=== PATIENT | female | born 1995 | race African-American/Black ===

== ENCOUNTER 2021-05-15 18:36 | Emergency (ER) | payer SELFPAY ==
[~2021-05-15] VITALS: Ht 154.9 cm; Wt 45.5 kg
[2021-05-15 18:37] VITALS: BP 144/82
[2021-05-15] MEDS ORDERED: ABIL300I IM (19:12)
[2021-05-15] MEDS ORDERED: VALA1TAB5 PO (19:12)
== END 2021-05-15 20:21 | disposition left against medical advice (07) ==
LOC: M ED 18:36
DX: Z53.29 Procedure and treatment not carried out because of patient's decision for other reasons (principal)

== ENCOUNTER 2021-08-12 10:06 | Emergency (ER) | payer OTHER, SELFPAY ==
[~2021-08-12] VITALS: Ht 154.9 cm; Wt 51.8 kg
[~2021-08-12 10:06] MED LIST: ABIL300I IM; VALA1TAB5 PO
[2021-08-12] MEDS ORDERED: ONDA-83 PO (10:11)
[2021-08-12 11:45] LABS: BASO % 0.3 % (0.0-1.0); EOS # 0.1 10^3/uL (0.0-0.5); EOS % 0.7 % (0.0-3.0); HEMATOCRIT 37.1 % (36.0-47.0); LYMPH % 28.7 % (24.0-44.0); MEAN CORPUSCULAR HEMOGLOBIN 26.8 pg (27.0-33.0); MEAN CORPUSCULAR HGB CONC 32.3 g/dl (32.0-36.5); MONO # 0.5 10^3/uL (0.0-0.8); MONO % 7.7 % (2.0-8.0); NEUTROPHILS # 4.3 10^3/uL (1.5-8.5); NEUTROPHILS % 62.2 % (36.0-66.0); PLATELET COUNT, AUTOMATED 281 10^3/uL (150-450); RED BLOOD COUNT 4.47 10^6/uL (4.00-5.40); WHITE BLOOD COUNT 6.8 10^3/uL (4.0-10.0)
[2021-08-12 13:09] VITALS: BP 110/63
[2021-08-12] MEDS ORDERED: METR-265 PO ×2 (13:15→13:20)
== END 2021-08-12 13:26 | disposition home or self-care (01) ==
LOC: M ED 10:06
DX: O20.9 Hemorrhage in early pregnancy, unspecified (principal); Z3A.01 Less than 8 weeks gestation of pregnancy; O23.591 Infection of other part of genital tract in pregnancy, first trimester

== ENCOUNTER 2021-10-01 13:31 | Emergency (ER) | payer OTHER ==
[~2021-10-01] VITALS: Ht 154.9 cm; Wt 54.8 kg
[~2021-10-01 13:31] MED LIST changes: +METR-265 PO; +ONDA-83 PO
[2021-10-01 13:32] VITALS: BP 138/77
== END 2021-10-01 17:08 | disposition left against medical advice (07) ==
LOC: M ED 13:31
DX: O21.9 Vomiting of pregnancy, unspecified (principal); Z3A.15 15 weeks gestation of pregnancy

== ENCOUNTER 2021-12-06 09:35 | Outpatient (CLI) | payer OTHER ==
[~2021-12-06] VITALS: Ht 157.5 cm; Wt 59.8 kg
[2021-12-06 09:59] VITALS: BP 131/59
[2021-12-06] MEDS ORDERED: HOME MED LIST COMPLETE! XX SCH (10:30)
[2021-12-06] MEDS ORDERED: ACET325C5 PO (10:30)
[2021-12-06] MEDS ORDERED: PRENTAB9 PO (10:30)
[2021-12-06] MEDS ORDERED: FERR325T3 PO (10:30)
[2021-12-06] MEDS ORDERED: ONDA-83 PO (10:30)
[2021-12-06] MEDS ORDERED: ASCO50TA PO (10:30)
[2021-12-06] MEDS ORDERED: ONDANSETRON 4MG TAB PO ONE (10:50)
[2021-12-06 11:20] LABS: APPEARANCE, URINE HAZY (CLEAR); BACTERIA, URINE AUTO NEGATIVE (NEGATIVE); BILIRUBIN, URINE AUTO NEGATIVE (NEGATIVE); BLOOD, URINE BLOOD NEGATIVE (NEGATIVE); COLOR, URINE YELLOW (YELLOW); GLUCOSE, URINE (UA) AUTO NEGATIVE (NEGATIVE); KETONE, URINE AUTO NEGATIVE (NEGATIVE); LEUKOCYTE ESTERASE, URINE AUTO 1+ (NEGATIVE); NITRITE, URINE AUTO NEGATIVE (NEGATIVE); PROTEIN, URINE AUTO NEGATIVE (NEGATIVE); RBC, URINE AUTO 1 /HPF (0-3); SPECIFIC GRAVITY URINE AUTO 1.004 (1.002-1.035); SQUAMOUS EPITHELIAL CELL UR AU 14 /HPF (0-6); UROBILINOGEN, URINE AUTO 0.2 mg/dL (0.0-2.0); WBC, URINE AUTO 2 /HPF (0-3)
[2021-12-06] MEDS ORDERED: ONDANSETRON 4MG/2ML VIAL IV ONE (11:35)
[2021-12-06] MEDS ORDERED: LR 1,000 ML IV ONE (11:35)
[2021-12-06] MEDS ORDERED: OMEP10CASR PO (11:53)
[2021-12-06] MEDS: OMEPRAZOLE 20MG CAP PO ONE ×2 (12:08→13:46)
[2021-12-06 14:10] VITALS: BP 130/70
== END 2021-12-06 14:50 | disposition home or self-care (01) ==
LOC: M LDO 09:35
PROVIDERS: ATTEND Obstetrics & Gynecology
DX: O26.892 Other specified pregnancy related conditions, second trimester (principal); R10.2 Pelvic and perineal pain; Z3A.24 24 weeks gestation of pregnancy; K21.9 Gastro-esophageal reflux disease without esophagitis; F43.10 Post-traumatic stress disorder, unspecified; F32.A Depression, unspecified; F41.9 Anxiety disorder, unspecified; F20.9 Schizophrenia, unspecified; O99.342 Other mental disorders complicating pregnancy, second trimester; O99.612 Diseases of the digestive system complicating pregnancy, second trimester
CPT/HCPCS: 81001; 96360; 96361; G0378; G0463; J2405

== ENCOUNTER 2021-12-08 08:25 | Outpatient (CLI) | payer OTHER ==
[~2021-12-08 08:25] MED LIST changes: +ACET325C5 PO; +ASCO50TA PO; +FERR325T3 PO; +OMEP10CASR PO; +PRENTAB9 PO
[2021-12-08] MEDS ORDERED: OMEPRAZOLE 20MG CAP PO ONE (09:00)
[2021-12-08] MEDS ORDERED: LR 1,000 ML IV SCH ×2 (09:00→10:00)
[2021-12-08] MEDS ORDERED: ONDANSETRON 4MG/2ML VIAL IV ONE (09:20)
== END 2021-12-08 11:05 | disposition left against medical advice (07) ==
LOC: M LDO 08:25
PROVIDERS: ATTEND Obstetrics & Gynecology
DX: O21.2 Late vomiting of pregnancy (principal); Z3A.24 24 weeks gestation of pregnancy; O99.342 Other mental disorders complicating pregnancy, second trimester; F43.20 Adjustment disorder, unspecified; F32.A Depression, unspecified; F41.9 Anxiety disorder, unspecified; F20.9 Schizophrenia, unspecified; Z91.19 Patient's noncompliance with other medical treatment and regimen
CPT/HCPCS: G0378; G0463

== ENCOUNTER 2021-12-14 03:34 | Outpatient (CLI) | payer OTHER ==
[~2021-12-14] VITALS: Ht 157.5 cm; Wt 54.4 kg
[2021-12-14 03:43] VITALS: BP 139/80
[2021-12-14] MEDS ORDERED: HOME MED LIST COMPLETE! XX SCH (04:15)
[2021-12-14] MEDS ORDERED: ARIPiprazole 15 MG TAB (AbiLIFY) PO ONE (05:45)
[2021-12-14 06:10] VITALS: BP 98/52
[2021-12-14 07:29] VITALS: BP 121/56
[2021-12-14] MEDS ORDERED: ARIPiprazole MONOHYDRATE 400 MG INJ (ABILIFY)(FREE PSY INPT ONLY) IM ONE (08:00)
[2021-12-14] MEDS ORDERED: ONDANSETRON 4MG ORAL DISINTEGRATING TAB PO PRN (08:25)
== END 2021-12-14 08:34 | disposition home or self-care (01) ==
LOC: M LDO 03:34
PROVIDERS: ATTEND Obstetrics & Gynecology
DX: O99.342 Other mental disorders complicating pregnancy, second trimester (principal); F20.9 Schizophrenia, unspecified; F31.9 Bipolar disorder, unspecified; Z3A.25 25 weeks gestation of pregnancy
CPT/HCPCS: 59025; 96372; G0378; G0463

== ENCOUNTER 2022-01-10 11:54 | Outpatient (CLI) | payer OTHER ==
[~2022-01-10] VITALS: Ht 157.5 cm; Wt 59.1 kg
[2022-01-10 12:05] VITALS: BP 110/62
[2022-01-10] MEDS ORDERED: TRAN1DIS4 TOP (12:13)
[2022-01-10] MEDS ORDERED: HOME MED LIST COMPLETE! XX SCH (12:15)
[2022-01-10] MEDS ORDERED: PRIL20TA2 PO (13:26)
[2022-01-10] MEDS ORDERED: ONDA4TAB6 PO (13:27)
== END 2022-01-10 13:50 | disposition home or self-care (01) ==
LOC: M LDO 11:54
PROVIDERS: ATTEND Obstetrics & Gynecology
DX: O21.2 Late vomiting of pregnancy (principal); Z3A.29 29 weeks gestation of pregnancy

== ENCOUNTER 2022-01-27 07:02 | Outpatient (CLI) | payer OTHER ==
[~2022-01-27] VITALS: Ht 157.5 cm; Wt 60.8 kg
[~2022-01-27 07:02] MED LIST changes: +ONDA4TAB6 PO; +PRIL20TA2 PO; +TRAN1DIS4 TOP
[2022-01-27 08:42] LABS: AMORPHOUS SEDIMENT SMALL (NEGATIVE); APPEARANCE, URINE HAZY (CLEAR); BACTERIA, URINE AUTO NEGATIVE (NEGATIVE); BILIRUBIN, URINE AUTO NEGATIVE (NEGATIVE); BLOOD, URINE BLOOD NEGATIVE (NEGATIVE); COLOR, URINE YELLOW (YELLOW); GLUCOSE, URINE (UA) AUTO NEGATIVE (NEGATIVE); KETONE, URINE AUTO NEGATIVE (NEGATIVE); LEUKOCYTE ESTERASE, URINE AUTO 3+ (NEGATIVE); NITRITE, URINE AUTO NEGATIVE (NEGATIVE); PROTEIN, URINE AUTO NEGATIVE (NEGATIVE); RBC, URINE AUTO 1 /HPF (0-3); SPECIFIC GRAVITY URINE AUTO 1.005 (1.002-1.035); SQUAMOUS EPITHELIAL CELL UR AU 5 /HPF (0-6); UROBILINOGEN, URINE AUTO 0.2 mg/dL (0.0-2.0); WBC, URINE AUTO 1 /HPF (0-3)
[2022-01-27] MEDS ORDERED: LR 1,000 ML IV SCH (08:55)
[2022-01-27] MEDS ORDERED: FLUCONAZOLE 50MG TABLET PO ONE (09:50)
== END 2022-01-27 12:00 | disposition home or self-care (01) ==
LOC: M LDO 07:02
PROVIDERS: ATTEND Obstetrics & Gynecology
DX: O47.03 False labor before 37 completed weeks of gestation, third trimester (principal); O21.2 Late vomiting of pregnancy; O99.343 Other mental disorders complicating pregnancy, third trimester; F20.9 Schizophrenia, unspecified; R10.30 Lower abdominal pain, unspecified; O34.219 Maternal care for unspecified type scar from previous cesarean delivery; O99.323 Drug use complicating pregnancy, third trimester; F12.20 Cannabis dependence, uncomplicated; Z87.891 Personal history of nicotine dependence; O23.593 Infection of other part of genital tract in pregnancy, third trimester; B37.9 Candidiasis, unspecified; Z3A.32 32 weeks gestation of pregnancy
CPT/HCPCS: 59025; 76815; 76817; 76820; 81001; 82731; 87081; 87086; G0463

== ENCOUNTER 2022-01-29 12:47 | Outpatient (CLI) | payer OTHER ==
[~2022-01-29] VITALS: Ht 157.5 cm; Wt 60.8 kg
[2022-01-29 12:58] VITALS: BP 104/53
[2022-01-29] MEDS ORDERED: HOME MED LIST COMPLETE! XX SCH (13:20)
[2022-01-29] MEDS ORDERED: LR 1,000 ML IV ONE (13:25)
[2022-01-30] MEDS ORDERED: ABIL1TAB12 PO (08:31)
[2022-03-10] MEDS ORDERED: BENZ-52 (07:37)
[2022-03-10] MEDS ORDERED: PREN1CHW6 PO (11:09)
== END 2022-01-29 14:20 | disposition left against medical advice (07) ==
LOC: M LDO 12:47
PROVIDERS: ATTEND Obstetrics & Gynecology
DX: Z53.21 Procedure and treatment not carried out due to patient leaving prior to being seen by health care provider (principal)
CPT/HCPCS: 59025; G0463

== ENCOUNTER 2022-01-30 06:21 | Outpatient (CLI) | payer OTHER ==
[~2022-01-30] VITALS: Ht 160 cm; Wt 60.9 kg
[2022-01-30 06:42] VITALS: BP 97/57
[2022-01-30 08:19] VITALS: BP 107/69
[2022-01-30] MEDS ORDERED: ABIL1TAB12 PO (08:31)
== END 2022-01-30 09:51 | disposition left against medical advice (07) ==
LOC: M LDO 06:21
PROVIDERS: ATTEND Obstetrics & Gynecology
DX: O26.893 Other specified pregnancy related conditions, third trimester (principal); O21.8 Other vomiting complicating pregnancy; O99.343 Other mental disorders complicating pregnancy, third trimester; F20.9 Schizophrenia, unspecified; O34.219 Maternal care for unspecified type scar from previous cesarean delivery; Z3A.32 32 weeks gestation of pregnancy
CPT/HCPCS: 59025; G0463

== ENCOUNTER 2022-02-04 08:19 | Emergency (ER) | payer OTHER ==
[~2022-02-04] VITALS: Ht 154.9 cm; Wt 60.1 kg
[2022-02-04 08:19] VITALS: BP 117/65
[~2022-02-04 08:19] MED LIST changes: +ABIL1TAB12 PO
== END 2022-02-04 08:30 | disposition left against medical advice (07) ==
LOC: M ED 08:19
DX: Z53.29 Procedure and treatment not carried out because of patient's decision for other reasons (principal)

== ENCOUNTER 2022-02-06 00:45 | Outpatient (CLI) | payer OTHER ==
[~2022-02-06] VITALS: Ht 154.9 cm; Wt 59.8 kg
[2022-02-06 01:00] VITALS: BP 119/61
[2022-02-06] MEDS ORDERED: HOME MED LIST COMPLETE! XX SCH (01:25)
[2022-02-06 02:43] VITALS: BP 113/58
[2022-02-06] MEDS ORDERED: ABIL400I IM (03:06)
[2022-02-06] MEDS ORDERED: MULTIVITAMIN -ADULT INJECTION 10 ML, THIAMINE INJection 100 MG, FOLIC ACID 1 MG in NS 1... IV ONE ×8 (04:00)
[2022-02-06] MEDS ORDERED: ARIPiprazole MONOHYDRATE 400 MG INJ (ABILIFY) PT CHG ONE IM (04:00)
[2022-02-06] MEDS ORDERED: ARIPiprazole MONOHYDRATE 400 MG INJ (ABILIFY)(FREE PSY INPT ONLY) IM ONE (04:00)
[2022-02-06 04:48] VITALS: BP 99/54
[2022-02-06 06:29] VITALS: BP 106/54
[2022-02-06] MEDS ORDERED: OMEPRAZOLE 20MG CAP PO SCH (09:00)
[2022-02-06] MEDS ORDERED: ONDANSETRON 4MG TAB PO PRN (09:25)
== END 2022-02-06 11:26 | disposition home or self-care (01) ==
LOC: M LDO 00:45
PROVIDERS: ATTEND Obstetrics & Gynecology
DX: O99.343 Other mental disorders complicating pregnancy, third trimester (principal); F20.9 Schizophrenia, unspecified; F41.9 Anxiety disorder, unspecified; F32.A Depression, unspecified; F43.10 Post-traumatic stress disorder, unspecified; Z3A.33 33 weeks gestation of pregnancy; O34.219 Maternal care for unspecified type scar from previous cesarean delivery; Z91.14 Patient's other noncompliance with medication regimen; Z79.899 Other long term (current) drug therapy
CPT/HCPCS: 59025; 96360; 96372; G0463; J0401; J3411

== ENCOUNTER 2022-02-20 10:11 | Emergency (ER) | payer OTHER ==
[~2022-02-20] VITALS: Ht 157.5 cm; Wt 59.1 kg
[~2022-02-20 10:11] MED LIST changes: +ABIL400I IM
[2022-02-20 11:59] VITALS: BP 116/62
== END 2022-02-20 12:00 | disposition home or self-care (01) ==
LOC: M ED 10:11
DX: O99.343 Other mental disorders complicating pregnancy, third trimester (principal); F43.20 Adjustment disorder, unspecified; F31.9 Bipolar disorder, unspecified; F41.9 Anxiety disorder, unspecified; F25.9 Schizoaffective disorder, unspecified; Z3A.35 35 weeks gestation of pregnancy; Z79.899 Other long term (current) drug therapy

== ENCOUNTER 2022-03-05 23:35 | Outpatient (CLI) | payer OTHER ==
[~2022-03-05] VITALS: Ht 157.5 cm; Wt 63.1 kg
[2022-03-05 23:57] VITALS: BP 120/73
[2022-03-06] MEDS ORDERED: ONDANSETRON 4MG TAB PO PRN (00:45)
[2022-03-06] MEDS ORDERED: OMEPRAZOLE 20MG CAP PO ONE (01:00)
== END 2022-03-06 01:31 | disposition home or self-care (01) ==
LOC: M LDO 23:35
PROVIDERS: ATTEND Obstetrics & Gynecology
DX: O47.1 False labor at or after 37 completed weeks of gestation (principal); Z3A.37 37 weeks gestation of pregnancy; O26.893 Other specified pregnancy related conditions, third trimester; R11.0 Nausea; O34.219 Maternal care for unspecified type scar from previous cesarean delivery
CPT/HCPCS: 59025; G0463

== ENCOUNTER 2022-03-17 04:45 | Inpatient (IN) | payer OTHER ==
[~2022-03-17] VITALS: Ht 157.5 cm; Wt 64.8 kg
[2022-03-17] VITALS (8 sets, daily range): BP systolic 108–135; BP diastolic 56–81
[~2022-03-17 04:45] MED LIST changes: +BENZ-52; +PREN1CHW6 PO
[2022-03-17] MEDS ORDERED: ceFAZolin SOD 2 GM in IV 1 EA IV ONE (05:50)
[2022-03-17] MEDS ORDERED: LACTATED RINGER'S 1000 ML IV ONE (05:50)
[2022-03-17] MEDS ORDERED: ACETAMINOPHEN 650 MG SUPP PR ONE (05:50)
[2022-03-17] MEDS ORDERED: LR 1,000 ML IV SCH ×2 (05:50→09:25)
[2022-03-17] MEDS ORDERED: BICITRA 30ML SOLN UDC PO ONE (05:50)
[2022-03-17] MEDS ORDERED: BUPIVACAINE HCL 0.25% 10ML VIAL SC ONE (05:50)
[2022-03-17 06:00] LABS: HEMATOCRIT 34.2 % (36.0-47.0); MEAN CORPUSCULAR HEMOGLOBIN 28.1 pg (27.0-33.0); MEAN CORPUSCULAR HGB CONC 32.2 g/dl (32.0-36.5); MEAN CORPUSCULAR VOLUME 87.2 fl (80.0-96.0); PLATELET COUNT, AUTOMATED 309 10^3/uL (150-450); RED BLOOD COUNT 3.92 10^6/uL (4.00-5.40); WHITE BLOOD COUNT 7.8 10^3/uL (4.0-10.0)
[2022-03-17] MEDS ORDERED: AZITHROMYCIN INJ 500 MG, VIAL MATE ADAPTER 1 EACH in NS 250 ML IV ONE (06:00)
[2022-03-17] MEDS ORDERED: ONDANSETRON 4MG 2ML VIAL IV ONE (06:55)
[2022-03-17] MEDS ORDERED: KETOROLAC 60MG 2ML VIAL As Ordered ONE (07:45)
[2022-03-17] MEDS ORDERED: OXYTOCIN 30 UNITS IN 0.9% NaCl 500ML IV BAG (J2590) As Ordered ONE ×2 (07:45→09:28)
[2022-03-17] MEDS ORDERED: ACETAMINOPHEN 1000MG 100ML IV BTL (OFIRMEV) (J0131 PER 10MG) As Ordered ONE (07:45)
[2022-03-17] MEDS ORDERED: dexameTHASONE 4 MG/ML 1ML VIAL (J1100 PER 1MG) As Ordered ONE (07:45)
[2022-03-17] MEDS ORDERED: MORPHINE PRES-FREE INJ 10 MG/10 ML VIAL As Ordered ONE (07:45)
[2022-03-17] MEDS ORDERED: ONDANSETRON 4MG 2ML VIAL As Ordered ONE ×2 (07:45→10:04)
[2022-03-17] MEDS ORDERED: PHENYLephrine 500MCG 5ML (100MCG/ML) SYRINGE As Ordered ONE (08:14)
[2022-03-17] MEDS ORDERED: ePHEDrine SULFATE 25 MG/5 ML(5MG/ML) SYRINGE As Ordered ONE (08:14)
[2022-03-17] MEDS ORDERED: OXYTOCIN INJ 10 UNITS/ML VIAL (J2590) As Ordered ONE (08:19)
[2022-03-17 08:43] LABS: CORD GAS ABE V -4.7; CORD GAS HCO3 V 21.5 MEQ/L; CORD GAS O2 SAT V 79.5 %; CORD GAS PH V 7.306 UNITS; CORD GAS PO2 V 36.5 mmHg; CORD GAS SBC V 20.2 MEQ/L; CORD GAS TCO2 V 22.8 MEQ/L
[2022-03-17 08:44] LABS: CORD GAS ABE A -3.9; CORD GAS HCO3 A 24.6 MEQ/L; CORD GAS O2 SAT A 33.3 %; CORD GAS PCO2 A 61.4 mmHg; CORD GAS PH A 7.221 UNITS; CORD GAS PO2 A 13.1 mmHg; CORD GAS TCO2 A 26.5 MEQ/L
[2022-03-17] MEDS ORDERED: METHYLERGONOVINE MALEATE 0.2 MG TAB PO PRN (09:25)
[2022-03-17] MEDS ORDERED: RHOGAM 300 MCG (1500 IU) INJ (J2790) IM SCH (09:25)
[2022-03-17] MEDS ORDERED: OXYTOCIN DRIP 30 UNITS in IV 1 EA IV ONE (09:25)
[2022-03-17] MEDS ORDERED: ACETAMINOPHEN TAB 650MG DOSE (2X325MG) PO PRN (09:25)
[2022-03-17] MEDS ORDERED: OXYTOCIN INJ 10 UNITS/ML VIAL (J2590) IV ONE (09:25)
[2022-03-17] MEDS ORDERED: OXYTOCIN DRIP 30 UNITS in IV 1 EA IV SCH (09:25)
[2022-03-17] MEDS ORDERED: SIMETHICONE 80MG CHEW TAB PO PRN (09:25)
[2022-03-17] MEDS ORDERED: ACETAMINOPHEN 500 MG TAB PO PRN (09:25)
[2022-03-17] MEDS ORDERED: ANUSOL HC CREAM 30GM TOP PRN (09:25)
[2022-03-17] MEDS ORDERED: ONDANSETRON 4MG 2ML VIAL IV PRN (09:25)
[2022-03-17] MEDS ORDERED: DOCUSATE SODIUM 100MG CAPSULE PO PRN (09:25)
[2022-03-17] MEDS ORDERED: METHYLERGONOVINE MALEATE 0.2 MG/ML VIAL (J2210) IM PRN (09:25)
[2022-03-17] MEDS ORDERED: ONDANSETRON 4MG TAB PO PRN (09:25)
[2022-03-17] MEDS ORDERED: diphenhydrAMINE 50MG/ML VIAL (J1200) IV PRN (09:30)
[2022-03-17] MEDS ORDERED: PERCOCET 5MG/325MG TAB PO PRN (09:30)
[2022-03-17] MEDS ORDERED: MORPHINE 2 MG/ML 1ML VIAL IV PRN (09:30)
[2022-03-17] MEDS ORDERED: OMEPRAZOLE 20MG CAP PO ONE (11:50)
[2022-03-17] MEDS ORDERED: PROMETHAZINE 25MG/ML 1ML VIAL IV ONE (14:45)
[2022-03-17] MEDS: KETOROLAC 30 MG/ML 1ML VIAL IV SCH ×2 (15:25→20:36)
[2022-03-18 02:00] VITALS: BP 108/58
[2022-03-18] MEDS: KETOROLAC 30 MG/ML 1ML VIAL IV SCH (03:19)
[2022-03-18 06:00] VITALS: BP 125/65
[2022-03-18 06:51] LABS: HEMATOCRIT 26.9 % (36.0-47.0); MEAN CORPUSCULAR HEMOGLOBIN 27.8 pg (27.0-33.0); MEAN CORPUSCULAR HGB CONC 31.6 g/dl (32.0-36.5); MEAN CORPUSCULAR VOLUME 87.9 fl (80.0-96.0); PLATELET COUNT, AUTOMATED 255 10^3/uL (150-450); RED BLOOD COUNT 3.06 10^6/uL (4.00-5.40); WHITE BLOOD COUNT 13.5 10^3/uL (4.0-10.0)
[2022-03-18 07:02] LABS: HEMOGLOBIN 8.5 g/dl (12.0-15.5)
[2022-03-18] MEDS ORDERED: PRENATAL VITAMINS CHEWABLE TABLET PO SCH (09:00)
[2022-03-18] MEDS ORDERED: OMEPRAZOLE 20MG CAP PO SCH (09:00)
[2022-03-18 10:00] VITALS: BP 135/65
[2022-03-18] MEDS ORDERED: IBUPROFEN 600MG TAB PO PRN (11:00)
[2022-03-19] MEDS ORDERED: MEASLES,MUMPS,RUBELLA VACCINE INJ (MMR-II) (90707) SC.IMMUN ONE (09:00)
== END 2022-03-18 15:11 | disposition home or self-care (01) | DRG 772 ==
LOC: M LDI 04:45 → M OBS 10:57
PROVIDERS: ADMIT Obstetrics & Gynecology; ATTEND Obstetrics & Gynecology
PROC: 10D00Z1 Extraction of Products of Conception, Low, Open Approach (ICD-10-PCS; principal; 2022-03-17 07:30)
DX: O34.211 Maternal care for low transverse scar from previous cesarean delivery (principal); O98.32 Other infections with a predominantly sexual mode of transmission complicating childbirth; A60.09 Herpesviral infection of other urogenital tract; O99.02 Anemia complicating childbirth; D64.9 Anemia, unspecified; O99.344 Other mental disorders complicating childbirth; F31.9 Bipolar disorder, unspecified; F41.9 Anxiety disorder, unspecified; F43.10 Post-traumatic stress disorder, unspecified; F20.9 Schizophrenia, unspecified; Z37.0 Single live birth; Z3A.39 39 weeks gestation of pregnancy

== ENCOUNTER 2022-07-17 06:23 | Emergency (ER) | payer OTHER ==
[~2022-07-17] VITALS: Ht 154.9 cm; Wt 55.6 kg
[2022-07-17 06:24] VITALS: BP 131/60
== END 2022-07-17 07:18 | disposition left against medical advice (07) ==
LOC: M ED 06:23
DX: Z53.21 Procedure and treatment not carried out due to patient leaving prior to being seen by health care provider (principal)